=== PATIENT | male | born 1995 | race Caucasian/White ===

== ENCOUNTER 2018-01-08 17:59 | Emergency (ER) | payer OTHER ==
[2018-01-08 18:04] VITALS: BP 148/77; PULSE 90; RESP 20; TEMP 97.8
[2018-01-08] MEDS ORDERED: diphenhydrAMINE 50 MG CAP PO STA (18:17)
[2018-01-08] MEDS ORDERED: methylPREDNISolone SOD SUCCI 125 MG/2 ML VIAL IM ONE (18:17)
--- NOTE | 2018-01-08 18:25 | ED ---
Skin/Abscess/FB HPI - General Chief complaint: Skin/Abscess/Foreign Body Stated complaint: Hives Time Seen by Provider: 01/08/18 18:08 Source: patient, RN notes reviewed, old records reviewed Mode of arrival: ambulatory Limitations: no limitations - History of Present Illness Initial comments: this patient is a 22-year-old male presents emergency Department chief complaint of 2 days of Rash over his arms, back of his legs, and welts over his forearms and posterior knee. Patient reports that it's painful to walk on it due to swelling. He has swollen hands bilaterally. He states he cannot think of any ALLERGIC signs reaction type of history that it causes for him. He states that the rash is nonpruritic. He reports he did take some Benadryl in the bumps on his arms to go down. He denies any recent fever or chills, chest pain shortness of breath. He denies any dysuria or hematuria. Denies any concern for sexual transmitted infection at this time. - Related Data Home Medications Medication Instructions Recorded Confirmed Albuterol Inhaler [Ventolin Hfa 2 puff INHALATION RT-Q6H PRN 01/08/18 01/08/18 Inhaler] diphenhydrAMINE HCL [Benadryl] 50 mg PO ONCE PRN 01/08/18 01/08/18 Previous Rx's Medication Instructions Recorded diphenhydrAMINE [Benadryl] 25 mg PO TID #30 capsule 01/08/18 predniSONE 50 mg PO DAILY #5 tablet 01/08/18 Allergies Allergy/AdvReac Type Severity Reaction Status Date / Time No Known Allergies Allergy Verified 01/08/18 18:15 Review of Systems ROS Statement: Those systems with pertinent positive or pertinent negative responses have been documented in the HPI. ROS Other: All systems not noted in ROS Statement are negative. Past Medical History Past Medical History: No Reported History History of Any Multi-Drug Resistant Organisms: None Reported Past Surgical History: No Surgical Hx Reported Past Psychological History: No Psychological Hx Reported Smoking Status: Current every day smoker Past Alcohol Use History: None Reported Past Drug Use History: None Reported General Exam - General Exam Comments Initial Comments: this patient is a well-appearing 22-year-old male. No acute distress. Limitations: no limitations General appearance: alert, in no apparent distress Head exam: Present: atraumatic, normocephalic, normal inspection Eye exam: Present: normal appearance, PERRL, EOMI. Absent: scleral icterus, conjunctival injection, periorbital swelling ENT exam: Present: normal exam, mucous membranes moist Neck exam: Present: normal inspection. Absent: tenderness, meningismus, lymphadenopathy Respiratory exam: Present: normal lung sounds bilaterally. Absent: respiratory distress, wheezes, rales, rhonchi, stridor Cardiovascular Exam: Present: regular rate, normal rhythm, normal heart sounds. Absent: systolic murmur, diastolic murmur, rubs, gallop, clicks GI/Abdominal exam: Present: soft, normal bowel sounds. Absent: distended, tenderness, guarding, rebound, rigid Extremities exam: Present: normal inspection, full ROM, normal capillary refill. Absent: tenderness, pedal edema, joint swelling, calf tenderness Back exam: Present: normal inspection Neurological exam: Present: alert, oriented X3, CN II-XII intact Psychiatric exam: Present: normal affect, normal mood Skin exam: Present: warm, dry, intact, normal color, rash (patient has appears to be urticarial like rash over the forearms, legs, some areas of welts over the forearm and posterior knee.) Course Vital Signs 01/08/18 18:03 Temperature 97.8 F Pulse Rate 90 Respiratory 20 Rate Blood Pressure 148/77 O2 Sat by Pulse 99 Oximetry Medical Decision Making - Medical Decision Making This is a 22-year-old with chief complaint of rash over her forearms, legs, swelling of his hands and feet and some welts over his arms and legs. Patient reports he has no known exposure to anything that could cause ALLERGIC reaction. He states it got better after he took a dose of Benadryl. I discussed I'm patient appears nontoxic, he denies any sexual transmitted infection or concern for disseminated gonococcemia. He has no other complaints at this time. He was given IM Solu-Medrol and Benadryl. Patient will be discharged at this time with prescription for Benadryl and prednisone. I discussed that he needs follow-up with primary care provider or return to emergency department if any alarming signs symptoms occur. Disposition Clinical Impression: Urticaria Disposition: HOME SELF-CARE Condition: Good Instructions: Urticaria (ED) Additional Instructions: patient advised to follow-up with primary care physician. Take the steroids and Benadryl as directed. Return to emergency department if any alarming signs or symptoms occur. Prescriptions: diphenhydrAMINE [Benadryl] 25 mg PO TID #30 capsule predniSONE 50 mg PO DAILY #5 tablet Referrals: Eliezer Underwood MD [Primary Care Provider] - 1-2 days Time of Disposition: 18:37
== END 2018-01-08 18:48 | disposition home or self-care (01) ==
LOC: EC 17:59
DX: L50.9 Urticaria, unspecified (principal); F17.200 Nicotine dependence, unspecified, uncomplicated
CPT/HCPCS: 99283; 96372; J2930

== ENCOUNTER 2020-06-29 02:45 | Emergency (ER) | payer OTHER ==
[2020-06-29 02:50] VITALS: RESP 16
[2020-06-29] MEDS ORDERED: KETOROLAC 30 MG/ML 1 ML VIAL IVP STA (02:58)
[2020-06-29] MEDS ORDERED: SODIUM CHLORIDE 0.9% 1,000 ML IV STA ×2 (02:58)
[2020-06-29] MEDS ORDERED: ONDANSETRON 4 MG/2 ML VIAL IVP STA (02:58)
[2020-06-29] MEDS ORDERED: MORPHINE SULFATE 4 MG/ML SYRINGE IV STA (02:58)
--- NOTE | 2020-06-29 03:01 | ED ---
General Adult HPI - General Source: patient, RN notes reviewed, old records reviewed Mode of arrival: ambulatory Limitations: no limitations <Maria Alejandra Cummings - Last Filed: 06/29/20 03:36> <Nette Ruiz - Last Filed: 06/29/20 04:50> - General Chief complaint: Back Pain/Injury Stated complaint: Back Pain Time Seen by Provider: 06/29/20 02:56 - History of Present Illness Initial comments: 25-year-old male presents to return today with onset of right-sided flank pain and back pain starting yesterday. He reports lasted 30 minutes and then subsided. Patient's and complained of some pain starting today has been constant. He reports it's in the right flank. Denies any change in urination and is aware of. He reports he's had no history of kidney stones in the past. Denies any abdominal pain nausea or vomiting. Patient reports he feels is a deeper pain doesn't seem to be worse with movement. Denies any heavy lifting. Denies any pain radiating down the legs. (Maria Alejandra Cummings) - Related Data Home Medications Medication Instructions Recorded Confirmed Albuterol Inhaler (Mhu) [Ventolin 2 puff INHALATION RT-Q6H PRN 01/08/18 01/08/18 Hfa Inhaler] diphenhydrAMINE HCL [Benadryl] 50 mg PO ONCE PRN 01/08/18 01/08/18 Previous Rx's Medication Instructions Recorded diphenhydrAMINE [Benadryl] 25 mg PO TID #30 capsule 01/08/18 predniSONE 50 mg PO DAILY #5 tablet 01/08/18 Tamsulosin [Flomax] 0.4 mg PO DAILY #7 cap 06/29/20 Allergies Allergy/AdvReac Type Severity Reaction Status Date / Time No Known Allergies Allergy Verified 06/29/20 02:47 Review of Systems ROS Other: All systems not noted in ROS Statement are negative. <Maria Alejandra Cummings - Last Filed: 06/29/20 03:36> ROS Other: All systems not noted in ROS Statement are negative. <Nette Ruiz P - Last Filed: 06/29/20 04:50> ROS Statement: Those systems with pertinent positive or pertinent negative responses have been documented in the HPI. Past Medical History Past Medical History: No Reported History History of Any Multi-Drug Resistant Organisms: None Reported Past Surgical History: No Surgical Hx Reported Past Psychological History: No Psychological Hx Reported Smoking Status: Current every day smoker Past Alcohol Use History: None Reported Past Drug Use History: None Reported <Simi Cummingsily - Last Filed: 06/29/20 03:36> General Exam Limitations: no limitations General appearance: alert, in no apparent distress Head exam: Present: atraumatic, normocephalic, normal inspection Eye exam: Present: normal appearance, PERRL, EOMI. Absent: scleral icterus, conjunctival injection, periorbital swelling ENT exam: Present: normal exam, mucous membranes moist Neck exam: Present: normal inspection Respiratory exam: Present: normal lung sounds bilaterally. Absent: respiratory distress, wheezes, rales, rhonchi, stridor Cardiovascular Exam: Present: regular rate, normal rhythm, normal heart sounds. Absent: systolic murmur, diastolic murmur, rubs, gallop, clicks GI/Abdominal exam: Present: soft, tenderness (R CVA tenderness), normal bowel sounds. Absent: distended, guarding, rebound, rigid Extremities exam: Present: normal inspection, full ROM, normal capillary refill. Absent: tenderness, pedal edema, joint swelling, calf tenderness Back exam: Present: normal inspection Neurological exam: Present: alert, oriented X3, CN II-XII intact Psychiatric exam: Present: normal affect, normal mood Skin exam: Present: warm, dry, intact, normal color. Absent: rash <Maria Alejandra Cummings - Last Filed: 06/29/20 03:36> - General Exam Comments Initial Comments: 25-year-old male. Alert and oriented 3. Patient appears in moderate di scomfort. (Maria Alejandra Cummings) Course <Maria Alejandra Cummings - Last Filed: 06/29/20 03:36> Vital Signs 06/29/20 06/29/20 02:47 04:31 Temperature 98.9 F 97.7 F Pulse Rate 87 90 Respiratory 16 16 Rate Blood Pressure 127/74 126/67 O2 Sat by Pulse 95 100 Oximetry - Reevaluation(s) Reevaluation #1: 06/29/20 03:36 Patient's case transferred to Dr. Ruiz at 3:30 AM (Maria Alejandra Cummings) Medical Decision Making <Maria Alejandra Cummings - Last Filed: 06/29/20 03:36> - Lab Data Result diagrams: 06/29/20 03:20 06/29/20 03:20 <Nette Ruiz - Last Filed: 06/29/20 04:50> - Medical Decision Making 25-year-old male since returned today with concerns for right flank pain for the past day. Patient given IV fluids labwork obtained. Patient's case transferred to Dr. Ruiz at 3:30 AM pending lab results and computed bassam ography scan for concern for kidney stone. (Maria Alejandra Cummings) Patient care was signed out to me at end of shift. This healthy 25-year-old male presented for flank pain, labs are unremarkable urine had some hematuria and computed tomography scan confirmed a 3 mm UVJ stone. Patient had resolution of his pain after medications and is comfortable with the plan for discharge home with supportive care. Advised patient drink plenty of fluids he will be given a Tylenol 3 starter pack as well as Zofran starter pack upon discharge and prescribed Flomax. Patient advised follow-up with primary care for reevaluation. Return parameters were discussed patient was discharged home in stable condition. (Nette Ruiz) - Lab Data Lab Results 06/29/20 06/29/20 06/29/20 Range/Units 03:20 03:20 03:20 WBC 11.9 H (3.8-10.6) k/uL RBC 5.09 (4.30-5.90) m/uL Hgb 14.7 (13.0-17.5) gm/dL Hct 44.7 (39.0-53.0) % MCV 87.8 (80.0-100.0) fL MCH 28.9 (25.0-35.0) pg MCHC 32.9 (31.0-37.0) g/dL RDW 12.3 (11.5-15.5) % Plt Count 350 (150-450) k/uL Neutrophils % 54 % Lymphocytes % 36 % Monocytes % 5 % Eosinophils % 3 % Basophils % 1 % Neutrophils # 6.4 (1.3-7.7) k/uL Lymphocytes # 4.3 (1.0-4.8) k/uL Monocytes # 0.6 (0-1.0) k/uL Eosinophils # 0.3 (0-0.7) k/uL Basophils # 0.1 (0-0.2) k/uL Sodium 140 (137-145) mmol/L Potassium 4.0 (3.5-5.1) mmol/L Chloride 104 (98-107) mmol/L Carbon Dioxide 24 (22-30) mmol/L Anion Gap 12 mmol/L BUN 10 (9-20) mg/dL Creatinine 1.03 (0.66-1.25) mg/dL Est GFR (CKD-EPI)AfAm >90 (>60 ml/min/1.73 sqM) Est GFR (CKD-EPI)NonAf >90 (>60 ml/min/1.73 sqM) Glucose 155 H (74-99) mg/dL Calcium 9.7 (8.4-10.2) mg/dL Total Bilirubin 0.5 (0.2-1.3) mg/dL AST 28 (17-59) U/L ALT 17 (4-49) U/L Alkaline Phosphatase 68 (38-126) U/L Total Protein 7.6 (6.3-8.2) g/dL Albumin 5.0 (3.5-5.0) g/dL Lipase 106 (23-300) U/L Urine Color Yellow Urine Appearance Cloudy (Clear) Urine pH 5.5 (5.0-8.0) Ur Specific [place] 1.025 (1.001-1.035) Urine Protein 1+ H (Negative) Urine Glucose (UA) Negative (Negative) Urine Ketones Negative (Negative) Urine Blood Large H (Negative) Urine Nitrite Negative (Negative) Urine Bilirubin Negative (Negative) Urine Urobilinogen 2.0 (<2.0) mg/dL Ur Leukocyte Esterase Negative (Negative) Urine RBC >182 H (0-5) /hpf Urine WBC 2 (0-5) /hpf Urine Mucus Many H (None) /hpf Urine Yeast (Budding) Occasional H (None) /hpf Disposition <Maria Alejandra Cummings - Last Filed: 06/29/20 03:36> Is patient prescribed a controlled substance at d/c from ED?: No <Nette Ruiz - Last Filed: 06/29/20 04:50> Clinical Impression: Kidney stone Disposition: HOME SELF-CARE Condition: Stable Instructions (If sedation given, give patient instructions): Kidney Stones (ED) Prescriptions: Tamsulosin [Flomax] 0.4 mg PO DAILY #7 cap Referrals: Eliezer Underwood MD [Primary Care Provider] - 1-2 days
[2020-06-29 03:36] LABS: Basophils # (A) 0.1 k/uL (0-0.2); Basophils % (A) 1 %; Eosinophils # (A) 0.3 k/uL (0-0.7); Eosinophils % (A) 3 %; HCT 44.7 % (39.0-53.0); HGB 14.7 gm/dL (13.0-17.5); Lymphocytes # (A) 4.3 k/uL (1.0-4.8); Lymphocytes % (A) 36 %; MCH 28.9 pg (25.0-35.0); MCHC 32.9 g/dL (31.0-37.0); MCV 87.8 fL (80.0-100.0); Mean Platelet Volume 6.9; Monocytes # (A) 0.6 k/uL (0-1.0); Monocytes % (A) 5 %; Neutrophils # (A) 6.4 k/uL (1.3-7.7); Neutrophils % (A) 54 %; Platelet Count 350 k/uL (150-450); RBC 5.09 m/uL (4.30-5.90); RDW 12.3 % (11.5-15.5); WBC 11.9 k/uL (3.8-10.6)
[2020-06-29 03:38] LABS: Appearance,Urine Cloudy (Clear); Bilirubin,Urine Negative (Negative); Blood,Urine Large (Negative); Budding Yeast,Urine Occasional /hpf; Color,Urine Yellow; Glucose,Urine (UA) Negative (Negative); Ketones,Urine Negative (Negative); Leukocyte Esterase,Urine Negative (Negative); Mucus,Urine Many /hpf; Nitrite,Urine Negative (Negative); PH, Urine 5.5 (5.0-8.0); Protein,Urine 1+ (Negative); RBC,Urine >182 /hpf (0-5); Specific Gravity,Urine 1.025 (1.001-1.035); WBC,Urine 2 /hpf (0-5)
[2020-06-29 03:46] LABS: ALT 17 U/L (4-49); AST 28 U/L (17-59); African American GFR (CKD) >90 (>60 ml/min/1.73 sqM); Alkaline Phosphatase 68 U/L (38-126); Anion Gap 12 mmol/L; Blood Urea Nitrogen 10 mg/dL (9-20); Calcium 9.7 mg/dL (8.4-10.2); Carbon Dioxide 24 mmol/L (22-30); Chloride 104 mmol/L (98-107); Glucose 155 mg/dL (74-99); Non-African American GFR(CKD) >90 (>60 ml/min/1.73 sqM); Sodium 140 mmol/L (137-145); Total Bilirubin 0.5 mg/dL (0.2-1.3); Total Protein 7.6 g/dL (6.3-8.2)
--- NOTE | 2020-06-29 03:51 | CT ---
EXAMINATION TYPE: CT abdomen pelvis wo con DATE OF EXAM: 06/29/2020 COMPARISON: None HISTORY: right side flank pain CT DLP: 1200.4 mGycm Automated exposure control for dose reduction was used. Images were obtained from the diaphragm to the floor the pelvis with no contrast. Lung bases are clear. There is no pleural effusion. Heart appears normal. Liver spleen pancreas gallbladder stomach appear normal. Bile ducts are not dilated. There is no adre nal mass. Kidneys have normal size. There are multiple small bilateral renal calculi that measure up to 3 mm. There is mild right side hydronephrosis. There is 3 mm calculus at the right ureterovesical junction which is almost in the bladder. The bladder distends smoothly. There is no inguinal hernia. There is no free fluid in the pelvis. There is no mesenteric edema. There is no ascites or free air. There is no sign of a bowel obstructio n. Appendix is posterior and appears normal. There is no evidence of a pelvic mass. Lumbar vertebra have normal alignment. Disc spaces are fairly normal. The posterior elements are inta ct. Bony pelvis is intact. IMPRESSION: Multiple small bilateral renal calculi. Obstructing small calculus at the right ureteral vesicle junc tion. Mild right-sided hydronephrosis and hydroureter.
[2020-06-29] MEDS ORDERED: ONDANSETRON 4 MG ODT STARTER PACK 2 TAB BTL PO STA (04:06)
[2020-06-29] MEDS ORDERED: ACET/COD 300 MG/30 MG STARTER PACK 6 TAB BTL PO STA (04:06)
[2020-06-29 04:32] VITALS: BP 126/67; PULSE 90; TEMP 97.7
== END 2020-06-29 04:32 | disposition home or self-care (01) ==
LOC: EC 02:45
DX: N20.0 Calculus of kidney (principal); F17.200 Nicotine dependence, unspecified, uncomplicated
CPT/HCPCS: 36415; 80053; 83690; 85025; 81001; 74176; 99284; 96374; 96375 ×2; 96361; J2270; J2405; J1885; S0119

== ENCOUNTER 2021-06-20 17:16 | Emergency (ER) | payer OTHER ==
[2021-06-20 17:20] VITALS: BP 157/90; PULSE 95; RESP 16; TEMP 98.5
--- NOTE | 2021-06-20 17:35 | ED ---
General Adult HPI - General Chief complaint: Upper Respiratory Infection Stated complaint: poss Covid Source: patient, RN notes reviewed, old records reviewed Mode of arrival: ambulatory Limitations: no limitations - History of Present Illness Initial comments: 26-year-old white male, well-appearing alert and oriented 4, presents to the emergency room with complaints of developing a cough and fever since . 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 He states he had a fever on of 103 and he's been taking Tylenol with relief. . Patient states that he is nauseated but no vomiting. He states that he does have some congestion and loss of taste but no other symptoms. He is here today to get the monoclonal antibodies infusion since he heard that patients who are overweight and have asthma would qualify -: days(s) (3) Radiation: non-radiation Improves with: medication Worsens with: none (Tylenol) Associated Symptoms: cough, fever/chills, nausea/vomiting Treatments Prior to Arrival: other (Tylenol) - Related Data Home Medications Medication Instructions Recorded Confirmed Albuterol Inhaler (Mhu) [Ventolin 2 puff INHALATION RT-Q6H PRN 01/08/18 01/08/18 Hfa Inhaler] diphenhydrAMINE HCL [Benadryl] 50 mg PO ONCE PRN 01/08/18 01/08/18 Previous Rx's Medication Instructions Recorded diphenhydrAMINE [Benadryl] 25 mg PO TID #30 capsule 01/08/18 predniSONE 50 mg PO DAILY #5 tablet 01/08/18 Tamsulosin [Flomax] 0.4 mg PO DAILY #7 cap 06/29/20 Allergies Allergy/AdvReac Type Severity Reaction Status Date / Time No Known Allergies Allergy Verified 06/20/21 17:17 Review of Systems ROS Statement: Those systems with pertinent positive or pertinent negative responses have been documented in the HPI. ROS Other: All systems not noted in ROS Statement are negative. Past Medical History Past Medical History: No Reported History History of Any Multi-Drug Resistant Organisms: None Reported Past Surgical History: No Surgical Hx Reported Past Psychological History: No Psychological Hx Reported Smoking Status: Current some day smoker Past Alcohol Use History: Occasional Past Drug Use History: None Reported General Exam Limitations: no limitations General appearance: alert, in no apparent distress Head exam: Present: atraumatic, normocephalic, normal inspection Eye exam: Present: normal appearance, PERRL, EOMI. Absent: scleral icterus, conjunctival injection, periorbital swelling Pupils: Present: normal accommodation ENT exam: Present: normal exam, normal oropharynx, mucous membranes moist Neck exam: Present: normal inspection, full ROM. Absent: tenderness, meningismus, lymphadenopathy, thyromegaly Respiratory exam: Present: normal lung sounds bilaterally. Absent: respiratory distress, wheezes, rales, rhonchi, stridor, chest wall tenderness, accessory muscle use, decreased breath sounds, prolonged expiratory Cardiovascular Exam: Present: regular rate, normal rhythm, normal heart sounds. Absent: systolic murmur, diastolic murmur, rubs, gallop, clicks GI/Abdominal exam: Present: soft, normal bowel sounds. Absent: distended, tenderness, guarding, rebound, rigid Extremities exam: Present: normal inspection, full ROM, normal capillary refill. Absent: tenderness, pedal edema, joint swelling, calf tenderness Back exam: Present: normal inspection, full ROM. Absent: tenderness, CVA tenderness (R), CVA tenderness (L), muscle spasm, paraspinal tenderness, vertebral tenderness, rash noted Neurological exam: Present: alert, oriented X3, CN II-XII intact Psychiatric exam: Present: normal affect, normal mood Skin exam: Present: warm, dry, intact, normal color. Absent: rash, cyanosis, diaphoretic, erythema, petechiae, pallor, mottled Course Vital Signs 06/20/21 17:17 Temperature 98.5 F Pulse Rate 95 Respiratory 16 Rate Blood Pressure 157/90 O2 Sat by Pulse 98 Oximetry Medical Decision Making - Medical Decision Making Patient is well-appearing with stable vital signs and no fever here. Lung sounds are clear to auscultation. Patient without nausea and vomiting. Mucous membranes are moist. Rapid Covid test is negative. He will be directed to self quarantine for 7 days since he did have a recent exposure to Covid. Return if any worsening symptoms. Case discussed with Dr. Ruiz - Lab Data Lab Results 06/20/21 Range/Units Unknown Coronavirus (PCR) Detected A (Not Detectd) Disposition Clinical Impression: URI, acute Disposition: HOME SELF-CARE Condition: Good Instructions (If sedation given, give patient instructions): Upper Respiratory Infection (ED) Additional Instructions: Increase your fluid intake, take Tylenol and or Motrin as needed for fevers or body aches. Return to the emergency room with worsening symptoms. Follow-up with the primary care doctor in 1 week. Self quarantine 7 days after exposure to covid. Is patient prescribed a controlled substance at d/c from ED?: No Referrals: Eliezer Underwood MD [Primary Care Provider] - 1-2 days Time of Disposition: 18:32
== END 2021-06-20 19:08 | disposition home or self-care (01) ==
LOC: EC 17:16
DX: U07.1 COVID-19 (principal); J06.9 Acute upper respiratory infection, unspecified; F17.200 Nicotine dependence, unspecified, uncomplicated
CPT/HCPCS: 87635; 99283

== ENCOUNTER 2021-08-13 21:26 | Emergency (ER) | payer OTHER ==
[2021-08-13] MEDS ORDERED: SODIUM CHLORIDE 0.9% 1,000 ML IV STA (21:35)
[2021-08-13] MEDS ORDERED: ACETAMINOPHEN TAB 500 MG TAB PO STA (21:35)
[2021-08-13] MEDS ORDERED: KETOROLAC 15 MG/ML 1 ML VIAL IVP STA (21:53)
--- NOTE | 2021-08-13 21:53 | ED ---
General Adult HPI - General Source: patient Mode of arrival: ambulatory Limitations: no limitations <KimNoble Cortney - Last Filed: 08/13/21 23:16> <Georgie Mancilla - Last Filed: 08/13/21 23:49> - General Chief complaint: Upper Respiratory Infection Stated complaint: Fever,Sore Throat,Body Ache Time Seen by Provider: 08/13/21 21:34 - History of Present Illness Initial comments: Dictation was produced using Vivo[employer] dictation software. please excuse any grammatical, word or spelling errors. Chief Complaint: 26-year-old male presents with cough, shortness of breath and sore throat and fever. History of Present Illness: His 26-year-old male he states he didn't feeling sick since last night. Patient states the symptoms of shortness of breath fever and sore throat. He has a mild nonproductive cough. Patient had covered back in May. Patient states he did not get very sick when he was diagnosed. Patient does complain of sore throat. Denies any abdominal pain. No chest pain. The ROS documented in this emergency department record has been reviewed and confirmed by me. Those systems with pertinent positive or negative responses have been documented in the HPI. All other systems are other negative and/or noncontributory. PHYSICAL EXAM: General Impression: Alert and oriented x3, not in acute distress HEENT: Normocephalic atraumatic, extra-ocular movements intact, pupils equal and reactive to light bilaterally, mucous membranes moist, erythematous bilateral tonsils Cardiovascular: Heart regular rate and rhythm Chest: Able to complete full sentences, no retractions, no tachypnea Abdomen: abdomen soft, non-tender, non-distended, no organomegaly Musculoskeletal: Pulses present and equal in all extremities, no peripheral edema Motor: no focal deficits noted Neurological: CN II-XII grossly intact, no focal motor or sensory deficits noted Skin: Intact with no visualized rashes Psych: Normal affect and mood ED course: 26-year-old male presents to the emergency department for chief complaint of cough, shortness of breath, sore throat and fever. Upon arrival shows temperature 12.5, heart rate of 130. Patient's tachycardia is likely secondary to pyrexia. He is not hypoxic. Laboratory evaluation shows white count 22.1. Ventral 70.6 with monocytosis. [place] panel is unremarkable. Rotavirus and group A strep is negative. Chest x-ray nonacute. Patient reevaluated after analgesics IV fluids with improvement vital signs. Patient reevaluated 11:20 PM found be stable medical condition. (Noble Alvarez) - Related Data Home Medications Medication Instructions Recorded Confirmed Albuterol Inhaler (Mhu) [Ventolin 2 puff INHALATION RT-Q6H PRN 01/08/18 01/08/18 Hfa Inhaler] diphenhydrAMINE HCL [Benadryl] 50 mg PO ONCE PRN 01/08/18 01/08/18 Previous Rx's Medication Instructions Recorded diphenhydrAMINE [Benadryl] 25 mg PO TID #30 capsule 01/08/18 predniSONE 50 mg PO DAILY #5 tablet 01/08/18 Tamsulosin [Flomax] 0.4 mg PO DAILY #7 cap 06/29/20 Penicillin V Potassium [Pen Vee K] 500 mg PO BID 10 Days #20 tablet 08/13/21 Allergies Allergy/AdvReac Type Severity Reaction Status Date / Time No Known Allergies Allergy Verified 06/20/21 17:17 Review of Systems ROS Other: All systems not noted in ROS Statement are negative. <Noble Alvarez - Last Filed: 08/13/21 23:16> ROS Other: All systems not noted in ROS Statement are negative. <Georgie Mancilla - Last Filed: 08/13/21 23:49> ROS Statement: Those systems with pertinent positive or pertinent negative responses have been documented in the HPI. Past Medical History Past Medical History: No Reported History History of Any Multi-Drug Resistant Organisms: None Reported Past Surgical History: No Surgical Hx Reported Past Psychological History: No Psychological Hx Reported Smoking Status: Current some day smoker Past Alcohol Use History: Occasional Past Drug Use History: None Reported <Noble Alvarez - Last Filed: 08/13/21 23:16> General Exam Limitations: no limitations <Noble Alvarez - Last Filed: 08/13/21 23:16> Course Vital Signs 08/13/21 08/13/21 08/13/21 21:27 22:43 23:09 Temperature 102.5 F H 99.2 F 98.0 F Pulse Rate 130 H 101 H 95 Respiratory 20 18 18 Rate Blood Pressure 134/68 135/62 131/53 O2 Sat by Pulse 99 98 98 Oximetry Medical Decision Making - Lab Data Result diagrams: 08/13/21 22:12 08/13/21 22:12 <Noble Alvarez - Last Filed: 08/13/21 23:16> - Lab Data Result diagrams: 08/13/21 22:12 08/13/21 22:12 <Georgie Mancilla - Last Filed: 08/13/21 23:49> - Medical Decision Making Patient was signed out to me by Dr. Alvarez. at 11:30pm. [place] came back negative. Patient's vital signs remained stable. Patient be started on penicillin for possible tonsillitis, given a shot of steroids today for the rash and the pain. He'll continue on Tylenol and Motrin at home. He is stable for discharge. He is in agreement with this plan of care. Return parameters were discussed with him and he verbalized understanding. (Georgie Mancilla) - Lab Data Lab Results 08/13/21 08/13/21 08/13/21 Range/Units 22:12 22:12 22:12 WBC 22.1 H (3.8-10.6) k/uL RBC 4.90 (4.30-5.90) m/uL Hgb 14.9 (13.0-17.5) gm/dL Hct 43.2 (39.0-53.0) % MCV 88.2 (80.0-100.0) fL MCH 30.4 (25.0-35.0) pg MCHC 34.5 (31.0-37.0) g/dL RDW 12.3 (11.5-15.5) % Plt Count 321 (150-450) k/uL MPV 7.5 Neutrophils % 80 % Lymphocytes % 11 % Monocytes % 7 % Eosinophils % 1 % Basophils % 0 % Neutrophils # 17.6 H (1.3-7.7) k/uL Lymphocytes # 2.5 (1.0-4.8) k/uL Monocytes # 1.4 H (0-1.0) k/uL Eosinophils # 0.3 (0-0.7) k/uL Basophils # 0.1 (0-0.2) k/uL Sodium 134 L (137-145) mmol/L Potassium 4.0 (3.5-5.1) mmol/L Chloride 99 (98-107) mmol/L Carbon Dioxide 22 (22-30) mmol/L Anion Gap 13 mmol/L BUN 11 (9-20) mg/dL Creatinine 0.69 (0.66-1.25) mg/dL Est GFR (CKD-EPI)AfAm >90 (>60 ml/min/1.73 sqM) Est GFR (CKD-EPI)NonAf >90 (>60 ml/min/1.73 sqM) Glucose 126 H (74-99) mg/dL Plasma Lactic Acid Aamir 1.8 (0.7-2.0) mmol/L Calcium 9.5 (8.4-10.2) mg/dL Total Bilirubin 0.9 (0.2-1.3) mg/dL AST 24 (17-59) U/L ALT 16 (4-49) U/L Alkaline Phosphatase 100 (38-126) U/L Total Protein 7.2 (6.3-8.2) g/dL Albumin 4.4 (3.5-5.0) g/dL Coronavirus (PCR) (Not Detectd) Heterophile Antibody (Negative) Group A Strep Rapid (Negative) 08/13/21 08/13/21 08/13/21 Range/Units 22:12 22:12 22:12 WBC (3.8-10.6) k/uL RBC (4.30-5.90) m/uL Hgb (13.0-17.5) gm/dL Hct (39.0-53.0) % MCV (80.0-100.0) fL MCH (25.0-35.0) pg MCHC (31.0-37.0) g/dL RDW (11.5-15.5) % Plt Count (150-450) k/uL MPV Neutrophils % % Lymphocytes % % Monocytes % % Eosinophils % % Basophils % % Neutrophils # (1.3-7.7) k/uL Lymphocytes # (1.0-4.8) k/uL Monocytes # (0-1.0) k/uL Eosinophils # (0-0.7) k/uL Basophils # (0-0.2) k/uL Sodium (137-145) mmol/L Potassium (3.5-5.1) mmol/L Chloride (98-107) mmol/L Carbon Dioxide (22-30) mmol/L Anion Gap mmol/L BUN (9-20) mg/dL Creatinine (0.66-1.25) mg/dL Est GFR (CKD-EPI)AfAm (>60 ml/min/1.73 sqM) Est GFR (CKD-EPI)NonAf (>60 ml/min/1.73 sqM) Glucose (74-99) mg/dL Plasma Lactic Acid Aamir (0.7-2.0) mmol/L Calcium (8.4-10.2) mg/dL Total Bilirubin (0.2-1.3) mg/dL AST (17-59) U/L ALT (4-49) U/L Alkaline Phosphatase (38-126) U/L Total Protein (6.3-8.2) g/dL Albumin (3.5-5.0) g/dL Coronavirus (PCR) Not Detected (Not Detectd) Heterophile Antibody Negative (Negative) Group A Strep Rapid Negative (Negative) Disposition Is patient prescribed a controlled substance at d/c from ED?: No <Noble Alvarez - Last Filed: 08/13/21 23:16> Is patient prescribed a controlled substance at d/c from ED?: No Time of Disposition: 23:49 <Georgie Mancilla - Last Filed: 08/13/21 23:49> Clinical Impression: Pharyngitis Disposition: HOME SELF-CARE Condition: Fair Instructions (If sedation given, give patient instructions): Pharyngitis (ED) Additional Instructions: Please return to the Emergency Department if symptoms worsen or any other concerns. Take antibiotics as prescribed. Continue Tylenol and/or Motrin for fever and pain control. Prescriptions: Penicillin V Potassium [Pen Vee K] 500 mg PO BID 10 Days #20 tablet Referrals: Eliezer Underwood MD [Primary Care Provider] - 1-2 days
--- NOTE | 2021-08-13 22:08 | XR ---
EXAMINATION TYPE: XR chest 1V portable DATE OF EXAM: 08/13/2021 COMPARISON: NONE HISTORY: Cough TECHNIQUE: FINDINGS: Heart and mediastinum are normal. Lungs are clear. Diaphragm is normal. Bony thorax appears normal. IMPRESSION: Normal chest.
[2021-08-13 22:44] VITALS: RESP 18
[2021-08-13 22:51] LABS: Basophils # (A) 0.1 k/uL (0-0.2); Basophils % (A) 0 %; Eosinophils # (A) 0.3 k/uL (0-0.7); Eosinophils % (A) 1 %; HCT 43.2 % (39.0-53.0); HGB 14.9 gm/dL (13.0-17.5); Lymphocytes # (A) 2.5 k/uL (1.0-4.8); Lymphocytes % (A) 11 %; MCH 30.4 pg (25.0-35.0); MCHC 34.5 g/dL (31.0-37.0); MCV 88.2 fL (80.0-100.0); Mean Platelet Volume 7.5; Monocytes # (A) 1.4 k/uL (0-1.0); Monocytes % (A) 7 %; Neutrophils # (A) 17.6 k/uL (1.3-7.7); Neutrophils % (A) 80 %; Platelet Count 321 k/uL (150-450); RDW 12.3 % (11.5-15.5); WBC 22.1 k/uL (3.8-10.6)
[2021-08-13 23:03] LABS: ALT 16 U/L (4-49); AST 24 U/L (17-59); African American GFR (CKD) >90 (>60 ml/min/1.73 sqM); Albumin 4.4 g/dL (3.5-5.0); Alkaline Phosphatase 100 U/L (38-126); Anion Gap 13 mmol/L; Blood Urea Nitrogen 11 mg/dL (9-20); Calcium 9.5 mg/dL (8.4-10.2); Carbon Dioxide 22 mmol/L (22-30); Chloride 99 mmol/L (98-107); Glucose 126 mg/dL (74-99); Non-African American GFR(CKD) >90 (>60 ml/min/1.73 sqM); Sodium 134 mmol/L (137-145); Total Bilirubin 0.9 mg/dL (0.2-1.3); Total Protein 7.2 g/dL (6.3-8.2)
[2021-08-13 23:10] VITALS: PULSE 95; TEMP 98
[2021-08-13] MEDS ORDERED: methylPREDNISolone SOD SUCCI 125 MG/2 ML VIAL IV STA (23:44)
[2021-08-13] MEDS ORDERED: PENICILLIN V POTASSIUM 250 MG TAB PO STA (23:45)
[2021-08-14 00:15] VITALS: BP 131/59
== END 2021-08-14 00:15 | disposition home or self-care (01) ==
LOC: EC 21:26
DX: J02.9 Acute pharyngitis, unspecified (principal); F17.200 Nicotine dependence, unspecified, uncomplicated; Z20.822 Contact with and (suspected) exposure to COVID-19
CPT/HCPCS: 36415; 93005; 80053; 83605; 85025; 86308; 87040; 87081; 87430; 87635; 71045; 99285; 96374; 96375; 96361; J2930; J1885

== ENCOUNTER 2021-12-08 03:18 | Emergency (ER) | payer OTHER ==
[2021-12-08 03:26] VITALS: TEMP 98.8
[2021-12-08 03:44] VITALS: BP 137/68; PULSE 71; RESP 18
--- NOTE | 2021-12-08 03:54 | ED ---
Extremity Problem HPI - General Chief complaint: Extremity Problem,Nontraumatic Stated complaint: Leg swelling Time Seen by Provider: 12/08/21 03:28 Source: patient, RN notes reviewed Mode of arrival: ambulatory Limitations: no limitations - History of Present Illness Initial comments: This is a pleasant 26-year-old male who presents to the emergency department complaining of bilateral lower extremity pain and edema. Patient states this started about 3 days ago. He is also complaining of redness to both lower extremities. Patient states this has happened about 6 times over the past 2 years. He states at this time the pain is slightly more bothersome than usual. Patient denies any injury. He denies any shortness of breath or chest pain. No fever or chills. No problems with vomiting which urination. Patient denies any rash or problem elsewhere. Patient has no significant past medical history. Denies any significant family history. Patient is a cigarette smokeroccasional. Takes no prescription or [id number] medications. P atient states that when this happened previously he would get the swelling for about 2 or 3 days and would resolve on its own. It appears to be slightly worse this time. MD Complaint: extremity swelling - Related Data Home Medications Medication Instructions Recorded Confirmed Albuterol Inhaler (Mhu) [Ventolin 2 puff INHALATION RT-Q6H PRN 01/08/18 01/08/18 Hfa Inhaler] diphenhydrAMINE HCL [Benadryl] 50 mg PO ONCE PRN 01/08/18 01/08/18 Previous Rx's Medication Instructions Recorded diphenhydrAMINE [Benadryl] 25 mg PO TID #30 capsule 01/08/18 predniSONE 50 mg PO DAILY #5 tablet 01/08/18 Tamsulosin [Flomax] 0.4 mg PO DAILY #7 cap 06/29/20 Penicillin V Potassium [Pen Vee K] 500 mg PO BID 10 Days #20 tablet 08/13/21 Cephalexin [Keflex] 500 mg PO Q6HR #40 cap 12/08/21 Allergies Allergy/AdvReac Type Severity Reaction Status Date / Time No Known Allergies Allergy Verified 12/08/21 03:23 Review of Systems ROS Statement: Those systems with pertinent positive or pertinent negative responses have been documented in the HPI. ROS Other: All systems not noted in ROS Statement are negative. Past Medical History Past Medical History: No Reported History History of Any Multi-Drug Resistant Organisms: None Reported Past Surgical History: No Surgical Hx Reported Past Psychological History: No Psychological Hx Reported Smoking Status: Current some day smoker Past Alcohol Use History: Occasional Past Drug Use History: None Reported General Exam Limitations: no limitations General appearance: alert, in no apparent distress Head exam: Present: atraumatic, normocephalic, normal inspection Eye exam: Present: normal appearance, PERRL, EOMI. Absent: scleral icterus, conjunctival injection, periorbital swelling ENT exam: Present: normal exam, mucous membranes moist Neck exam: Present: normal inspection. Absent: tenderness, meningismus, lymphadenopathy Respiratory exam: Present: normal lung sounds bilaterally. Absent: respiratory distress, wheezes, rales, rhonchi, stridor Cardiovascular Exam: Present: regular rate, normal rhythm, normal heart sounds. Absent: systolic murmur, diastolic murmur, rubs, gallop, clicks GI/Abdominal exam: Present: soft, normal bowel sounds. Absent: distended, tenderness, guarding, rebound, rigid Extremities exam: Present: normal inspection, full ROM, normal capillary refill, pedal edema (Patient has 2+ pitting edema to the bilateral lower extremities with associated erythema.), other (Homans sign is negative. Distal sensation intact. Erythema does not appear to involve the foot. Pedal pulses are 2+4.). Absent: tenderness, joint swelling, calf tenderness Back exam: Present: normal inspection Neurological exam: Present: alert, oriented X3, CN II-XII intact Psychiatric exam: Present: normal affect, normal mood Skin exam: Present: warm, dry, intact, normal color, erythema (Erythema to the bilateral lower extremities.). Absent: rash Course Vital Signs 12/08/21 12/08/21 03:24 03:42 Temperature 98.8 F Pulse Rate 104 H 71 Respiratory 20 18 Rate Blood Pressure 161/71 137/68 O2 Sat by Pulse 99 98 Oximetry Medical Decision Making - Medical Decision Making Patient has bilateral leg edema. This does not fit the clinical picture of congestive heart failure as patient has no respiratory distress or chest pain. Cellulitis possible although the patient has no fever. Interestingly, the patient's also had this about 6 times over the past 2 years and it resolved without treatment. This does raise the possibility of inflammatory disease such as autoimmune disease or vasculitis. Gen. labs ordered. Patient will be endorsed to the ED attending physician, Dr. Uribe For further evaluation and disposition. - Lab Data Result diagrams: 12/08/21 03:52 12/08/21 03:52 Lab Results 12/08/21 12/08/21 Range/Units 03:52 03:52 WBC 9.8 (3.8-10.6) k/uL RBC 4.48 (4.30-5.90) m/uL Hgb 13.4 (13.0-17.5) gm/dL Hct 40.2 (39.0-53.0) % MCV 89.7 (80.0-100.0) fL MCH 29.9 (25.0-35.0) pg MCHC 33.3 (31.0-37.0) g/dL RDW 12.8 (11.5-15.5) % Plt Count 472 H (150-450) k/uL MPV 6.6 Neutrophils % 56 % Lymphocytes % 34 % Monocytes % 4 % Eosinophils % 4 % Basophils % 0 % Neutrophils # 5.5 (1.3-7.7) k/uL Lymphocytes # 3.3 (1.0-4.8) k/uL Monocytes # 0.4 (0-1.0) k/uL Eosinophils # 0.4 (0-0.7) k/uL Basophils # 0.0 (0-0.2) k/uL Sodium 138 (137-145) mmol/L Potassium 3.9 (3.5-5.1) mmol/L Chloride 103 (98-107) mmol/L Carbon Dioxide 27 (22-30) mmol/L Anion Gap 8 mmol/L BUN 16 (9-20) mg/dL Creatinine 0.83 (0.66-1.25) mg/dL Est GFR (CKD-EPI)AfAm >90 (>60 ml/min/1.73 sqM) Est GFR (CKD-EPI)NonAf >90 (>60 ml/min/1.73 sqM) Glucose 120 H (74-99) mg/dL Calcium 9.5 (8.4-10.2) mg/dL Total Bilirubin 0.4 (0.2-1.3) mg/dL AST 33 (17-59) U/L ALT 39 (4-49) U/L Alkaline Phosphatase 83 (38-126) U/L Creatine Kinase 151 (55-170) U/L Total Protein 7.3 (6.3-8.2) g/dL Albumin 4.2 (3.5-5.0) g/dL Disposition Clinical Impression: Bilateral lower leg cellulitis, Peripheral edema Disposition: HOME SELF-CARE Condition: Good Instructions (If sedation given, give patient instructions): Cellulitis (DC), Leg Edema (ED) Additional Instructions: Use [id number] Tylenol as needed for pain control. Plan with the residence supervisor as discussed. Elevate your legs as much possible. Take antibiotics as directed. He should also make a follow-up appointment with your regular physician. Follow-up with your regular physician as directed. Return to the ER immediately if any symptoms worsen, new symptoms arise, or any other problems develop. Prescriptions: Cephalexin [Keflex] 500 mg PO Q6HR #40 cap Is patient prescribed a controlled substance at d/c from ED?: No Referrals: Terrance Jimenez MD [REFERRING] - 1-2 days Liliam Carlos MD [STAFF PHYSICIAN] - 12/11/21 Time of Disposition: 05:05
[2021-12-08 04:25] LABS: Basophils % (A) 0 %; Eosinophils # (A) 0.4 k/uL (0-0.7); Eosinophils % (A) 4 %; HCT 40.2 % (39.0-53.0); HGB 13.4 gm/dL (13.0-17.5); Lymphocytes # (A) 3.3 k/uL (1.0-4.8); Lymphocytes % (A) 34 %; MCH 29.9 pg (25.0-35.0); MCHC 33.3 g/dL (31.0-37.0); MCV 89.7 fL (80.0-100.0); Mean Platelet Volume 6.6; Monocytes # (A) 0.4 k/uL (0-1.0); Monocytes % (A) 4 %; Neutrophils # (A) 5.5 k/uL (1.3-7.7); Neutrophils % (A) 56 %; Platelet Count 472 k/uL (150-450); RBC 4.48 m/uL (4.30-5.90); RDW 12.8 % (11.5-15.5); WBC 9.8 k/uL (3.8-10.6)
[2021-12-08 04:35] LABS: ALT 39 U/L (4-49); AST 33 U/L (17-59); African American GFR (CKD) >90 (>60 ml/min/1.73 sqM); Albumin 4.2 g/dL (3.5-5.0); Alkaline Phosphatase 83 U/L (38-126); Anion Gap 8 mmol/L; Blood Urea Nitrogen 16 mg/dL (9-20); Calcium 9.5 mg/dL (8.4-10.2); Carbon Dioxide 27 mmol/L (22-30); Chloride 103 mmol/L (98-107); Creatine Kinase 151 U/L (55-170); Glucose 120 mg/dL (74-99); Non-African American GFR(CKD) >90 (>60 ml/min/1.73 sqM); Potassium 3.9 mmol/L (3.5-5.1); Sodium 138 mmol/L (137-145); Total Bilirubin 0.4 mg/dL (0.2-1.3); Total Protein 7.3 g/dL (6.3-8.2)
[2021-12-08] MEDS ORDERED: CEPHALEXIN 500 MG CAP PO STA (05:04)
[2021-12-08 05:37] LABS: Appearance,Urine Clear (Clear); Bilirubin,Urine Negative (Negative); Blood,Urine Trace (Negative); Color,Urine Yellow; Glucose,Urine (UA) Negative (Negative); Ketones,Urine Negative (Negative); Leukocyte Esterase,Urine Negative (Negative); Mucus,Urine Rare /hpf; Nitrite,Urine Negative (Negative); PH, Urine 5.5 (5.0-8.0); Protein,Urine Negative (Negative); RBC,Urine 2 /hpf (0-5); Specific Gravity,Urine 1.021 (1.001-1.035); Urobilinogen,Urine <2.0 mg/dL (<2.0); WBC,Urine 2 /hpf (0-5)
[2021-12-08 06:44] LABS: Erythrocyte Sedimentation Rate 75 mm/hr (0-15)
== END 2021-12-08 05:41 | disposition home or self-care (01) ==
LOC: EC 03:18
DX: L03.116 Cellulitis of left lower limb (principal); L03.115 Cellulitis of right lower limb; R60.9 Edema, unspecified; F17.200 Nicotine dependence, unspecified, uncomplicated
CPT/HCPCS: 36415; 80053; 81001; 82550; 85025; 85652; 99284

== ENCOUNTER 2024-05-28 16:19 | Emergency (ER) | payer BC, OTHER ==
--- NOTE | 2024-05-28 17:07 | ED ---
Recheck HPI - General Chief Complaint: Recheck/Abnormal Lab/Rx Stated Complaint: Fatigue Time Seen by Provider: 05/28/24 16:30 Source: patient, RN notes reviewed, old records reviewed Mode of arrival: ambulatory Limitations: no limitations - History of Present Illness Initial Comments: This is a 29-year-old male to the ER today. This patient presents today for evaluation of abnormal lab testing. Recent diagnosis of hepatitis with abnormal lab values patient states he was unhappy with his care at [facility] and did leave prior to completing treatment but family has been telling him that he needs further evaluation and he presents to the ER today without new complaint MD Complaint: abnormal lab -: days(s) Returns Today for: Called Because of Abnormal Lab/Test Symptoms Since Prior Visit: no new symptoms Context: called for abnormal lab result Associated Symptoms: none - Related Data Home Medications Medication Instructions Recorded Confirmed No Known Home Medications 05/28/24 05/28/24 Allergies Allergy/AdvReac Type Severity Reaction Status Date / Time No Known Allergies Allergy Verified 05/28/24 17:35 Review of Systems ROS Statement: Those systems with pertinent positive or pertinent negative responses have been documented in the HPI. ROS Other: All systems not noted in ROS Statement are negative. Past Medical History Past Medical History: No Reported History History of Any Multi-Drug Resistant Organisms: None Reported Past Surgical History: No Surgical Hx Reported Past Psychological History: No Psychological Hx Reported Smoking Status: Current some day smoker Past Alcohol Use History: Occasional Past Drug Use History: None Reported General Exam Limitations: no limitations General appearance: alert, in no apparent distress, anxious Head exam: Present: atraumatic, normocephalic, normal inspection Eye exam: Present: normal appearance, PERRL, EOMI. Absent: scleral icterus, conjunctival injection, periorbital swelling ENT exam: Present: normal exam, mucous membranes moist Neck exam: Present: normal inspection. Absent: tenderness, meningismus, lymphadenopathy Respiratory exam: Present: normal lung sounds bilaterally. Absent: respiratory distress, wheezes, rales, rhonchi, stridor Cardiovascular Exam: Present: normal rhythm, tachycardia, normal heart sounds. Absent: systolic murmur, diastolic murmur, rubs, gallop, clicks GI/Abdominal exam: Present: soft, normal bowel sounds. Absent: distended, tenderness, guarding, rebound, rigid Extremities exam: Present: normal inspection, full ROM, normal capillary refill. Absent: tenderness, pedal edema, joint swelling, calf tenderness Back exam: Present: normal inspection Neurological exam: Present: alert, oriented X3, CN II-XII intact Psychiatric exam: Present: normal affect, normal mood Skin exam: Present: warm, dry, intact, normal color. Absent: rash Course Vital Signs 05/28/24 05/28/24 16:25 19:24 Temperature 97.6 F 98.7 F Pulse Rate 112 H 101 H Respiratory 20 18 Rate Blood Pressure 126/75 152/76 O2 Sat by Pulse 99 99 Oximetry - Reevaluation(s) Reevaluation #1: Medical records reviewed Reevaluation #2: Patient symptoms unchanged Reevaluation #3: Patient informed of results questions answered Reevaluation #4: Was pt. sent in by a medical professional or institution (, PA, SATELLITE INSTRUCTION FACILITATOR, urgent care, hospital, or intermediate...) When possible be specific @ -no Did you speak to anyone other than the patient for history (EMS, parent, family, police, friend...)? What history was obtained from this source @ -no Did you review nursing and triage notes (agree or disagree)? Why? @ -agree Are old charts reviewed (outside hosp., previous admission, EMS record, old EKG, old radiological studies, urgent care reports/EKG's, intermediate records)? Report findings @ -yes from outside hospital reviewed including lab testing and hepatitis testing from prior hospital which did show positive testing for hepatitis C, lab values are trending worse today here in the ER Differential Diagnosis (chest pain, altered mental status, abdominal pain women, abdominal pain men, vaginal bleeding, weakness, fever, dyspnea, syncope, headache, dizziness, GI bleed, back pain, seizure, CVA, palpatations, mental health, musculoskeletal)? @ -prior EKG interpreted by me (3pts min.). @ -no X-rays interpreted by me (1pt min.). @ -no CT interpreted by me (1pt min.). @ -no U/S interpreted by me (1pt. min.). @ -no What testing was considered but not performed or refused? (CT, X-rays, U/S, labs)? Why? @ -none What meds were considered but not given or refused? Why? @ -none Did you discuss the management of the patient with other professionals (professionals i.e. , PA, SATELLITE INSTRUCTION FACILITATOR, lab, RT, psych nurse, social worker delinquency prevention, instrument processing tech, teacher, corrections officer, caser)? Give summary @ -no Was smoking cessation discussed for >3mins.? @ -no Was critical care preformed (if so, how long)? @ -no Were there social determinants of health that impacted care today? How? (Homelessness, low income, unemployed, alcoholism, drug addiction, transportation, low edu. Level, literacy, decrease access to med. care, fci, rehab)? @ -none Was there de-escalation of care discussed even if they declined (Discuss DNR or withdrawal of care, Hospice)? DNR status @ -no What co-morbidities impacted this encounter? (DM, HTN, Smoking, COPD, CAD, Cancer, CVA, ARF, Chemo, Hep., AIDS, mental health diagnosis, sleep apnea, morbid obesity)? @ -none Was patient admitted / discharged? Hospital course, mention meds given and route, prescriptions, significant lab abnormalities, going to OR and other pertinent info. @ - 29 male to the ER for evaluation patient presents today for evaluation regards to abnormal labs with recent diagnosis of hepatitis C, patient is concerned how he would have hepatitis C as he does not do IV drugs but patient d id have positive findings for this test he has follow-up with jewelry coater at [facility] and will continue to follow-up, patient does not want further GI transfer, does not want reevaluation at this time does want to see what his lab tests were trending to and wants to be discharged home Discharge Undiagnosed new problem with uncertain prognosis? @ -no Drug Therapy requiring intensive monitoring for toxicity (Heparin, Nitro, Insulin, Cardizem)? @ -no Were any procedures done? @ -no Diagnosis/symptom? @ -Acute hepatitis suspect hepatitis C Acute, or Chronic, or Acute on Chronic? @ -Acute Uncomplicated (without systemic symptoms) or Complicated (systemic symptoms)? @ -Complicated Side effects of treatment? @ -no Exacerbation, Progression, or Severe Exacerbation? @ -exacerbation Poses a threat to life or bodily function? How? (Chest pain, [place], [place], pneumonia, PE, COPD, DKA, ARF, appy, cholecystitis, CVA, Diverticulitis, Homicidal, Suicidal, threat to staff... and all critical care pts) @ -yes significant hepatitis Medical Decision Making - Medical Decision Making 29 male to the ER for evaluation patient presents today for evaluation regards to abnormal labs with recent diagnosis of hepatitis C, patient is concerned how he would have hepatitis C as he does not do IV drugs but patient did have positive findings for this test he has follow-up with jewelry coater at [facility] and will continue to follow-up, patient does not want further GI transfer, does not want reevaluation at this time does want to see what his lab tests were trending to and wants to be discharged home - Lab Data Result diagrams: 05/28/24 17:23 05/28/24 17:23 Lab Results 05/28/24 05/28/24 05/28/24 Range/Units 17:23 17:23 17:23 WBC (3.8-10.6) k/uL RBC (4.30-5.90) m/uL Hgb (13.0-17.5) gm/dL Hct (39.0-53.0) % MCV (80.0-100.0) fL MCH (25.0-35.0) pg MCHC (31.0-37.0) g/dL RDW (11.5-15.5) % Plt Count (150-450) k/uL MPV Neutrophils % % Lymphocytes % % Monocytes % % Eosinophils % % Basophils % % Neutrophils # (1.3-7.7) k/uL Lymphocytes # (1.0-4.8) k/uL Monocytes # (0-1.0) k/uL Eosinophils # (0-0.7) k/uL Basophils # (0-0.2) k/uL PT (10.0-12.5) sec INR (<1.2) APTT (22.0-30.0) sec Sodium 137 (137-145) mmol/L Potassium 4.3 (3.5-5.1) mmol/L Chloride 103 (98-107) mmol/L Carbon Dioxide 23 (22-30) mmol/L Anion Gap 11 mmol/L BUN 11 (9-20) mg/dL Creatinine 0.80 (0.66-1.25) mg/dL Est GFR (CKD-EPI)AfAm >90 (>60 ml/min/1.73 sqM) Est GFR (CKD-EPI)NonAf >90 (>60 ml/min/1.73 sqM) Glucose 145 H (74-99) mg/dL Plasma Lactic Acid Aamir 1.9 (0.7-2.0) mmol/L Calcium 9.9 (8.4-10.2) mg/dL Total Bilirubin 7.3 H (0.2-1.3) mg/dL Conjugated Bilirubin 3.3 H (0.0-0.3) mg/dL Unconjugated Bilirubin 1.3 H (0.0-1.1) mg/dL Delta Bilirubin 2.7 H (0.0-0.2) mg/dL GGT 261 H (0-73) U/L AST 1616 H (17-59) U/L ALT 3264 H (4-49) U/L Alkaline Phosphatase 178 H (38-126) U/L Ammonia 12 (<30) umol/L Total Protein 7.7 (6.3-8.2) g/dL Albumin 4.6 (3.5-5.0) g/dL Amylase 54 (30-110) U/L Lipase 172 (23-300) U/L Hepatitis A IgM Ab Nonreactive (Nonreactive) Hep Bs Antigen Nonreactive (Nonreactive) Hep B Core IgM Ab Nonreactive (Nonreactive) Hep C IgG Ab Reactive A (Nonreactive) 05/28/24 05/28/24 05/28/24 Range/Units 17:23 17:23 17:23 WBC 6.3 (3.8-10.6) k/uL RBC 5.91 H (4.30-5.90) m/uL Hgb 17.7 H (13.0-17.5) gm/dL Hct 57.4 H* (39.0-53.0) % MCV 97.2 (80.0-100.0) fL MCH 29.9 (25.0-35.0) pg MCHC 30.8 L (31.0-37.0) g/dL RDW 13.8 (11.5-15.5) % Plt Count 303 (150-450) k/uL MPV 7.8 Neutrophils % 55 % Lymphocytes % 32 % Monocytes % 8 % Eosinophils % 2 % Basophils % 1 % Neutrophils # 3.5 (1.3-7.7) k/uL Lymphocytes # 2.0 (1.0-4.8) k/uL Monocytes # 0.5 (0-1.0) k/uL Eosinophils # 0.2 (0-0.7) k/uL Basophils # 0.1 (0-0.2) k/uL PT 12.0 (10.0-12.5) sec INR 1.1 (<1.2) APTT 27.6 (22.0-30.0) sec Sodium (137-145) mmol/L Potassium (3.5-5.1) mmol/L Chloride (98-107) mmol/L Carbon Dioxide (22-30) mmol/L Anion Gap mmol/L BUN (9-20) mg/dL Creatinine (0.66-1.25) mg/dL Est GFR (CKD-EPI)AfAm (>60 ml/min/1.73 sqM) Est GFR (CKD-EPI)NonAf (>60 ml/min/1.73 sqM) Glucose (74-99) mg/dL Plasma Lactic Acid Aamir (0.7-2.0) mmol/L Calcium (8.4-10.2) mg/dL Total Bilirubin (0.2-1.3) mg/dL Conjugated Bilirubin (0.0-0.3) mg/dL Unconjugated Bilirubin (0.0-1.1) mg/dL Delta Bilirubin (0.0-0.2) mg/dL GGT (0-73) U/L AST (17-59) U/L ALT (4-49) U/L Alkaline Phosphatase (38-126) U/L Ammonia (<30) umol/L Total Protein (6.3-8.2) g/dL Albumin (3.5-5.0) g/dL Amylase (30-110) U/L Lipase 178 (23-300) U/L Hepatitis A IgM Ab (Nonreactive) Hep Bs Antigen (Nonreactive) Hep B Core IgM Ab (Nonreactive) Hep C IgG Ab (Nonreactive) Disposition Clinical Impression: Hepatitis Disposition: HOME SELF-CARE Condition: Serious Instructions (If sedation given, give patient instructions): Hepatitis C (ED) Is patient prescribed a controlled substance at d/c from ED?: No Referrals: None,Stated [Primary Care Provider] - 1-2 days Time of Disposition: :35
[2024-05-28] MEDS: SODIUM CHLORIDE 0.9% 1,000 ML IV STA (17:32)
[2024-05-28 18:07] LABS: INR 1.1 (<1.2); Partial Thromboplastin Time 27.6 sec (22.0-30.0)
[2024-05-28 18:10] LABS: African American GFR (CKD) >90 (>60 ml/min/1.73 sqM); Albumin 4.6 g/dL (3.5-5.0); Alkaline Phosphatase 178 U/L (38-126); Amylase 54 U/L (30-110); Anion Gap 11 mmol/L; Bilirubin, Conjugated 3.3 mg/dL (0.0-0.3); Bilirubin, Delta 2.7 mg/dL (0.0-0.2); Bilirubin,Unconjugated 1.3 mg/dL (0.0-1.1); Blood Urea Nitrogen 11 mg/dL (9-20); Calcium 9.9 mg/dL (8.4-10.2); Carbon Dioxide 23 mmol/L (22-30); Chloride 103 mmol/L (98-107); Glucose 145 mg/dL (74-99); Lipase 172 U/L (23-300); Non-African American GFR(CKD) >90 (>60 ml/min/1.73 sqM); Potassium 4.3 mmol/L (3.5-5.1); Sodium 137 mmol/L (137-145); Total Bilirubin 7.3 mg/dL (0.2-1.3); Total Protein 7.7 g/dL (6.3-8.2)
[2024-05-28 18:11] LABS: Lactic Acid, Venous 1.9 mmol/L (0.7-2.0)
[2024-05-28 18:38] LABS: Basophils # (A) 0.1 k/uL (0-0.2); Basophils % (A) 1 %; Eosinophils # (A) 0.2 k/uL (0-0.7); Eosinophils % (A) 2 %; HGB 17.7 gm/dL (13.0-17.5); Lymphocytes % (A) 32 %; MCH 29.9 pg (25.0-35.0); MCHC 30.8 g/dL (31.0-37.0); MCV 97.2 fL (80.0-100.0); Mean Platelet Volume 7.8; Monocytes # (A) 0.5 k/uL (0-1.0); Monocytes % (A) 8 %; Neutrophils # (A) 3.5 k/uL (1.3-7.7); Neutrophils % (A) 55 %; Platelet Count 303 k/uL (150-450); RBC 5.91 m/uL (4.30-5.90); RDW 13.8 % (11.5-15.5); WBC 6.3 k/uL (3.8-10.6)
[2024-05-28 18:43] LABS: HCT 57.4 % (39.0-53.0)
[2024-05-28 18:59] LABS: AST 1616 U/L (17-59)
[2024-05-28 19:28] VITALS: BP 152/76; PULSE 101; RESP 18; TEMP 98.7
[2024-05-28 19:33] LABS: ALT 3264 U/L (4-49)
[2024-05-29 02:25] LABS: Hepatitis A Antibody IgM Nonreactive (Nonreactive); Hepatitis B Core IgM Nonreactive (Nonreactive); Hepatitis B Surface Antigen Nonreactive (Nonreactive); Hepatitis C IgG Antibody Reactive (Nonreactive)
[2024-05-29 03:24] LABS: GGT 261 U/L (0-73)
== END 2024-05-28 19:52 | disposition home or self-care (01) ==
LOC: EC 16:19
DX: K75.9 Inflammatory liver disease, unspecified (principal); F17.200 Nicotine dependence, unspecified, uncomplicated
CPT/HCPCS: 36415; 80053; 80074; 82140; 82150; 82248; 82977; 83605; 83690; 85025; 85610; 85730; 96360; 99283

== ENCOUNTER 2025-04-04 09:43 | Emergency (ER) | payer BC ==
[2025-04-04 09:51] VITALS: TEMP 97.7
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
[2025-04-04] MEDS: ACETAMINOPHEN TAB 500 MG TAB PO STA (10:29)
[2025-04-04 10:31] VITALS: RESP 18
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
[2025-04-04 12:13] VITALS: BP 109/76; PULSE 85
== END 2025-04-04 12:11 | disposition home or self-care (01) ==
LOC: EC 09:43
DX: S30.1XXA Contusion of abdominal wall, initial encounter (principal); N20.0 Calculus of kidney; R16.1 Splenomegaly, not elsewhere classified; F17.200 Nicotine dependence, unspecified, uncomplicated; V89.2XXA Person injured in unspecified motor-vehicle accident, traffic, initial encounter; Y92.410 Unspecified street and highway as the place of occurrence of the external cause
CPT/HCPCS: 70450; 72125; 74176; 93005; 99284